=== PATIENT | male | born 1995 | race Caucasian/White ===

== ENCOUNTER 2017-06-07 21:26 | Emergency (ER) | payer OTHER ==
[~2017-06-07] VITALS: Ht 182.9 cm; Wt 105.5 kg
[2017-06-07 21:34] VITALS: TEMP 36.9; Ht 182.9 cm; Wt 105.5 kg
[2017-06-07] MEDS ORDERED: OXYCODONE/ACETAMINOPHEN 5-325 TAB PO STA (21:48)
[2017-06-07] MEDS ORDERED: DESM1TAB16 PO ×2 (22:22)
--- NOTE | 2017-06-07 22:24 | DIAGNOSTIC IMAGING REPORT ---
LEFT SHOULDER 3 VIEWS HISTORY: Left shoulder pain. Left shoulder dislocation? COMPARISON: None. FINDINGS: Left anterior shoulder dislocation. Probable small Hill-Sachs impaction fracture. The left clavicle is intact. Soft tissues are unremarkable. No radiopaque foreign bodies. IMPRESSION: Left anterior shoulder dislocation with a probable small Hill-Sachs impaction fracture. Electronically signed by: Estuardo Hightower M.D. 06/07/2017 10:22 PM Dictated Date/Time: 06/07/2017 10:19 PM
[2017-06-07] MEDS ORDERED: LORAZEPAM 1 MG TAB PO STA (22:26)
[2017-06-07] MEDS ORDERED: FENTANYL CITRATE INJ 50 MCG/1 ML 2 ML VIAL IV ONE (22:45)
[2017-06-07 23:06] VITALS: O2SAT 98
[2017-06-07] MEDS ORDERED: LORAZEPAM 2 MG/ML 1 ML VIAL IV STA (23:31)
[2017-06-07] MEDS ORDERED: LORAZEPAM 2 MG/ML 1 ML VIAL ONE (23:32)
[2017-06-08 02:04] VITALS: BP 137/74; PULSE 74; O2SAT 98
--- NOTE | 2017-06-08 05:49 | DIAGNOSTIC IMAGING REPORT ---
L SHOULDER MIN 2 VIEWS ROUTINE CLINICAL HISTORY: left shoulder dislocation trauma COMPARISON: None. DISCUSSION: Anterior dislocation left shoulder. There is no evidence for soft tissue swelling. IMPRESSION: Anterior dislocation left shoulder The above report was generated using voice recognition software. It may contain grammatical, syntax or spelling errors. Electronically signed by: Jeronimo Sy M.D. 06/08/2017 5:48 AM Dictated Date/Time: 06/08/2017 5:47 AM
--- NOTE | 2017-06-08 06:04 | DIAGNOSTIC IMAGING REPORT ---
L SHOULDER 1 VIEW CLINICAL HISTORY: Left shoulder s/p reduction COMPARISON: None. DISCUSSION: The bones and joint spaces appear intact. There is no evidence of fracture, dislocation or bony disease. There is no evidence for soft tissue swelling. Probable Hill-Sachs deformity IMPRESSION: Negative study. Anatomic alignment. Probable Hill-Sachs deformity The above report was generated using voice recognition software. It may contain grammatical, syntax or spelling errors. Electronically signed by: Jeronimo Sy M.D. 06/08/2017 6:03 AM Dictated Date/Time: 06/08/2017 6:02 AM
--- NOTE | 2017-06-09 03:23 | EMERGENCY ROOM VISIT NOTE ---
History First contact with patient: 21:41 Chief Complaint: SHOULDER DISLOCATION Stated Complaint: L SHOULDER DISLOCATION History of Present Illness The patient is a 21 year old male who presents to the Emergency Room with complaints of left shoulder injury that occurred about 30 minutes ago while playing basketball. The patient states that he had his left arm out to his side when another player struck into it, causing his arm to rotate behind. The patient states that about one year ago he had a dislocated left shoulder, and this feels similar to that episode. He does have pain with range of motion. No numbness or paresthesias. No bleeding. He did take 400 mg ibuprofen prior to coming to the ER. He considers himself otherwise healthy. Review of Systems More than 10 systems were reviewed and otherwise negative with the exception of history of present illness. Past Medical/Surgical History No chronic medical disease Family History No pertinent family history Social History Smoking Status: Never Smoker Occupation Status: [employer] student Current/Historical Medications Scheduled Desmopressin Acetate (Ddavp), 0.5 TAB PO QAM Desmopressin Acetate (Ddavp), 1 TAB PO HS Physical Exam Vital Signs Date Time Temp Pulse Resp B/P (MAP) Pulse Ox O2 Delivery O2 Flow Rate FiO2 06/08/17 02:04 74 16 137/74 98 06/08/17 00:23 88 16 124/71 97 Room Air 06/07/17 23:21 83 16 123/76 97 Room Air 06/07/17 23:06 98 Room Air 06/07/17 22:58 93 06/07/17 21:34 36.9 93 18 142/84 99 Room Air Physical Exam VITALS: Vitals are noted on the nurse's note and reviewed by myself. Vital signs stable. GENERAL: Well-developed, well-nourished, white male, who is in no acute distress and resting comfortably. Patient is cooperative with the examination. HEAD: Normocephalic atraumatic. NECK: Supple without nuchal rigidity. No lymphadenopathy. No thyromegaly. Cervical spine is nontender. HEART: Regular rate and rhythm without murmurs gallops or rubs. LUNGS: Clear to auscultation bilaterally without wheezes, rales or rhonchi. No retractions or accessory muscle use. MUSCULOSKELETAL: Positive tenderness over the left proximal humerus with clinical evidence of dislocation. No scapular or clavicular tenderness. Patient is resistant to external and internal rotation. Abduction is unable to be performed. Herb Digger strength left hand is 5/5. He is able to make the okay sign and give a thumbs up. He is able to touch his fingers to his thumb. There is no obvious neurologic deficit. NEURO: Patient was alert and oriented to person place and time. CN II through XII grossly intact. Medical Decision & Procedures ER Provider Diagnostic Interpretation: LEFT SHOULDER 3 VIEWS HISTORY: Left shoulder pain. Left shoulder dislocation? COMPARISON: None. FINDINGS: Left anterior shoulder dislocation. Probable small Hill-Sachs impaction fracture. The left clavicle is intact. Soft tissues are unremarkable. No radiopaque foreign bodies. IMPRESSION: Left anterior shoulder dislocation with a probable small Hill-Sachs impaction fracture. L SHOULDER MIN 2 VIEWS ROUTINE CLINICAL HISTORY: left shoulder dislocation trauma COMPARISON: None. DISCUSSION: Anterior dislocation left shoulder. There is no evidence for soft tissue swelling. IMPRESSION: Anterior dislocation left shoulder L SHOULDER 1 VIEW CLINICAL HISTORY: Left shoulder s/p reduction COMPARISON: None. DISCUSSION: The bones and joint spaces appear intact. There is no evidence of fracture, dislocation or bony disease. There is no evidence for soft tissue swelling. Probable Hill-Sachs deformity IMPRESSION: Negative study. Anatomic alignment. Probable Hill-Sachs deformity Medications Administered Medications (Trade) Dose Ordered Sig/Alistair Route Start Time Stop Time Status Last Admin Dose Admin Oxycodone/ Acetaminophen (Percocet 5-325mg Tab) 2 tab NOW STAT PO 06/07/17 21:48 06/07/17 21:49 DC 06/07/17 22:06 2 TAB Lorazepam (Ativan Tab) 2 mg NOW STAT PO 06/07/17 22:26 06/07/17 22:27 DC 06/07/17 22:29 2 MG Fentanyl Citrate (Fentanyl Inj) 100 mcg NOW ONCE IV 06/07/17 22:45 06/07/17 22:46 DC 06/07/17 22:51 100 MCG Lorazepam (Ativan Inj) 2 mg STK-MED ONCE .ROUTE 06/07/17 23:32 06/07/17 23:33 DC 06/07/17 23:34 1 MG ED Course Physical exam and history were performed. Nursing notes, EMR, and Medication List were personally reviewed. Patient appears to have suffered a left shoulder dislocation. On examination he appears to be anteriorly dislocated. The patient was given oral Percocet and Ativan here in the department and x-ray was performed, which did confirm the dislocation. The patient was placed onto his abdomen with his left arm hanging at his left side. Utilizing gentle traction I attempted to reduce the shoulder, but this was not successful. Subsequently an IV was placed into the patient. He was given 100 g fentanyl through the IV. Utilizing the assistance of staff I attempted a traction/countertraction reduction, however repeat x-ray showed this attempt was unsuccessful. I discussed the case with my attending physician, Dr. Kline. The patient was given an additional 1 mg IV Ativan, and Dr. Kline and I were able to successfully reduce the shoulder utilizing traction and countertraction. The patient remained neurologically intact after this procedure and had significant improvement of his pain. He was placed in an arm sling. Repeat x-ray was performed, and confirmed successful reduction. The patient overall appears well for discharge home. He will need to follow with orthopedics and was given information to do this. He was otherwise invited back to the ER with any new, worsening, or concerning symptoms. The chart was completed utilizing [employer] Speech Voice Recognition Software. Grammatical errors, random word insertions, pronoun errors, and incomplete sentences are an occasional consequence of this system due to software limitations, ambient noise, and hardware issues. Any formal questions or concerns about the content, text, or information contained within the body of this dictation should be directly addressed to the provider for clarification. . Medical Decision Differential diagnosis includes, but is not limited to: Sprain, strain, fracture , dislocation, subluxation, contusion, and others Impression Primary Impression: Anterior dislocation of left shoulder Departure Information Referrals No Doctor, Assigned (PCP) Patient Instructions My [facility]
== END 2017-06-08 02:00 | disposition home or self-care (01) ==
LOC: C.EDB 21:29 → C.EDA 06-08 02:00
DX: S43.015A Anterior dislocation of left humerus, initial encounter (principal); W50.0XXA Accidental hit or strike by another person, initial encounter; Y93.67 Activity, basketball

== ENCOUNTER 2017-09-07 01:14 | Emergency (ER) | payer OTHER ==
[~2017-09-07] VITALS: Ht 182.9 cm; Wt 102.1 kg
[~2017-09-07 01:14] MED LIST: DESM1TAB16 PO
[2017-09-07 01:20] VITALS: TEMP 36.9; Ht 182.9 cm; Wt 102.1 kg
[2017-09-07] MEDS ORDERED: IBUPROFEN 600 MG TAB PO STA (01:31)
--- NOTE | 2017-09-07 01:45 | EMERGENCY ROOM VISIT NOTE ---
ED Visit Note First contact with patient: 01:16 CHIEF COMPLAINT: Shoulder injury HISTORY OF PRESENT ILLNESS: This patient injured the shoulder earlier today with immediate onset of pain when he reached his arm up over his head. There is marked limitation of motion of the arm because of the pain. The patient did not hear a cracking the sound at the time of the injury. The pain is steady and severe and much worse with any movement of the arm. Patient has dislocated his shoulder before. He did not follow-up with orthopedics. There was no fall or trauma. No numbness no tingling. REVIEW OF SYSTEMS: A 6 system review of systems was completed with positives and pertinent negatives listed in the HPI. PMH: The patient is healthy; there is no significant medical or surgical history. SOCIAL HISTORY: Patient is a [employer] student. Non-smoker, no excessive alcohol use. PHYSICAL EXAM: Vital Signs: Reviewed nurse's notes. The shoulder is slightly swollen and deformed on inspection. There is a palpable defect on the anterior aspect of the shoulder and the entire anterior shoulder is tender. The range of motion is markedly reduced in all directions because of the pain. There is no tenderness of the distal clavicle. The lungs are clear to auscultation. EMERGENCY DEPARTMENT COURSE: I examined the patient and the patient remained stable in room A3. He had an obvious shoulder dislocation without trauma. Anterior Shoulder Dislocation Reduction Indication: dislocation Verbal consent obtained. Risks and benefits were explained with the usual customary discussion. A time out was taken. Neurovascular examination before the procedure revealed intact. The left shoulder glenohumeral dislocation was reduced by placing the patient prone and applying gentle downward inline traction on the humerus, with the elbow flexed at 90 degrees, while scapula manipulation was applied. This resulted in an easy reduction without complication. Neurovascular examination after the procedure revealed intact. The patient had significant pain relief and tolerated the procedure well. Post reduction x-ray showed that the head of the humerus was back in the anatomical position. A sling was placed and the patient was instructed as below. Patient was strongly encouraged to follow-up with orthopedics for his recurrent shoulder dislocation. He was advised to return to the ER meaty for severe pain , numbness, tingling, worsening signs or symptoms or as needed. DIAGNOSIS: Shoulder dislocation, left DISCHARGE INSTRUCTIONS & TREATMENT: DO NOT drive, drink alcohol, operate machinery, or perform dangerous activities today. You were given medications in the ER that can affect your ability to safely function or operate a vehicle. Ibuprofen(Motrin, Advil) may be used for fever or pain. Use 600mg every six hours as needed. Take with food. Avoid using more than 2400mg in a 24 hour period. Do not use 2400mg per day for more than three consecutive days without physician direction. Prolonged inappropriate use can lead to stomach upset or ulcers. This medication can be taken if you need to drive, work, or perform activities which may be dangerous when taking narcotic pain medication. (AND/OR) Acetaminophen(Tylenol) may be used for fever or pain. Use 1000mg every six hours as needed. Avoid using more than 3000mg in a 24 hour period. This medication can be taken if you need to drive, work, or perform activities which may be dangerous when taking narcotic pain medication. Ice compresses for 20 minutes at a time four times daily for 2-3 days. Use the sling as instructed. Wear this until cleared by orthopedics. Remove your arm from the sling 4-6 times a day and move all the joints around to keep them loose. Rest and elevate your injury. Continue current medications. Return to the ER immediately for any numbness, tingling, severe pain, extreme swelling in the extremity or as needed. Call Orthopedics Saturday morning to arrange follow up for your injury. Current/Historical Medications Scheduled Desmopressin Acetate (Ddavp), 0.5 TAB PO QAM Desmopressin Acetate (Ddavp), 1 TAB PO HS Allergies Uncoded Allergies: CODIENE (Allergy, Mild, rash, 06/07/17) Vital Signs Date Time Temp Pulse Resp B/P (MAP) Pulse Ox O2 Delivery O2 Flow Rate FiO2 09/07/17 01:20 36.9 104 18 137/86 94 Room Air Departure Information Referrals No Doctor, Assigned (PCP) Patient Instructions My [facility]
[2017-09-07 01:59] VITALS: BP 137/85; PULSE 93; O2SAT 100
--- NOTE | 2017-09-07 07:22 | DIAGNOSTIC IMAGING REPORT ---
L SHOULDER MIN 2 VIEWS ROUTINE CLINICAL HISTORY: Dislocation status post reduction COMPARISON: 06/08/2017 DISCUSSION: No acute fractures or dislocations are visualized. IMPRESSION: No fractures or dislocations identified. Electronically signed by: Alec Conner M.D. 09/07/2017 7:21 AM Dictated Date/Time: 09/07/2017 7:21 AM
== END 2017-09-07 02:01 | disposition home or self-care (01) ==
LOC: C.EDB 01:15 → C.EDA 02:01
DX: S43.005A Unspecified dislocation of left shoulder joint, initial encounter (principal); X58.XXXA Exposure to other specified factors, initial encounter